=== PATIENT | male | born 1960 | race Caucasian/White ===

== ENCOUNTER 2021-07-31 05:49 | Emergency (ER) | payer BC, SELFPAY ==
[2021-07-31 05:54] VITALS: BP 131/82; PULSE 83; RESP 18; TEMP 37.1; O2SAT 96; BMI 41.2
[2021-07-31 06:38] LABS: Absolute Lymphocyte Count 3.14 X10^3/uL (0.83-4.51); Absolute Neutrophil Count 6.6 X10^3/uL (2.0-7.7); Basophil# 0.07 X10^3/uL; Basophil% 0.6 % (0-1); Eosinophil# 0.14 X10^3/uL; Eosinophils% 1.3 % (0-5); Hematocrit 36.8 % (40-54); Hemoglobin 12.1 g/dL (13.0-16.5); Lymphocyte # 3.14 X10^3/ul (0.83-4.51); Lymphocyte % 28.8 % (19-41); Mean Corp Hgb Conc 32.9 g/dL (32-36); Mean Corpuscular Hgb 29.8 pg (27.0-32.0); Mean Corpuscular Volume 90.6 fL (80-94); Mean Platelet Vol. 10.5 fl (6.2-12.0); Monocyte# 0.94 X10^3/uL; Monocyte% 8.6 % (0-10); NRBC Flagged by Analyzer 0 % (0-5); Neutrophil # 6.55 X10^3/uL (2.7-7.7); Neutrophil % 60.2 % (47-70); Platelet Count 297 K/mm3 (150-450); RBC Distribution Width CV 14.2 % (11.6-14.6); RBC Distribution Width SD 47.8 fl (35.1-43.9); Red Blood Count 4.06 M/mm3 (4.6-6.2); White Blood Count 10.9 K/mm3 (4.4-11.0)
[2021-07-31 06:50] VITALS: BP 119/76; BP 121/73; BP 125/76; PULSE 105; PULSE 82; PULSE 87
[2021-07-31 06:50] LABS: Prothrombin Time (Protime)PT. 12.8 SECONDS (11.7-14.9)
[2021-07-31 06:51] LABS: Partial Thromboplast Time 24.6 Seconds (24.1-36.2)
[2021-07-31 06:55] LABS: AST(SGOT) 15 U/L (15-37); Alanine Aminotransfer ALT/SGPT 21 U/L (16-61); Albumin, Serum 2.9 g/dL (3.2-5.0); Alkaline Phosphatase 77 U/L (45-117); Anion Gap 9 (5-15); BUN 25 mg/dL (7-18); BUN/Creat Ratio 30.3 RATIO (10-20); Bilirubin, Direct 0.05 mg/dL (0.00-0.30); Calcium,Total 8.1 mg/dL (8.5-10.1); Chloride 108 mmol/L (98-107); Creatinine, Serum 0.82 mg/dL (0.70-1.30); EST Glomerular Filtration Rate 101 mL/min (>60); Est Glom Filt Rate - Afr Amer 122 mL/min (>60); Globulin 3.9 g/dL (2.2-4.2); Glucose 270 mg/dL (74-106); Lipase 138 U/L (73-393); Potassium 4.1 mmol/L (3.5-5.1); Protein, Total 6.8 g/dL (6.4-8.2); Sodium Level 138 mmol/L (136-145)
[2021-07-31 07:05] LABS: Lactic Acid 1.7 mmol/L (0.4-1.9)
[2021-07-31] MEDS: 0.9% Normal Saline 1,000 ML 999 ML IV (07:10)
--- NOTE | 2021-07-31 07:33 | EX.ED.DYSGE1 ---
HPI History of Present Illness Chief Complaint: GI Bleed Narrative Narrative: Patient is a 61-year-old male with past medical history of type 2 diabetes on oral hypoglycemic medication as well as hypertension. He states that he had a colonoscopy 5 years ago which was reportedly normal. He states yesterday evening around 7 or 8 PM he felt like his stomach was bloated and he use the restroom and it was bloody diarrhea. He states he does not take any blood thinners and he denies any recent travel outside the country or antibiotic use or history of intestinal disorder such as ulcer colitis or Crohn's disease. Patient states as the night went on he had 3-4 more episodes of bloody diarrhea and felt kind of lightheaded when standing up this morning. Secondary to this he was brought in for evaluation [facility] Medical History CPAP (continuous positive airway pressure) dependence Diabetes Non-smoker Sleep apnea Home Medications lisinopril 10 mg PO DAILY #30 tablet 09/20/15 [Rx Last Taken Unknown] metformin 500 mg PO BIDCM #60 tab 09/20/15 [Rx Last Taken Unknown] aspirin [Baby Aspirin] 81 mg PO DAILY 07/31/21 [History Last Taken Unknown] dicyclomine 20 mg PO 4X/DAY PRN PRN #28 tab 07/31/21 [Rx Last Taken Unknown] Allergy/AdvReac Type Severity Reaction Status Date / Time No Known Allergies Allergy Verified 09/19/15 15:39 Social History Smoking Status: Never smoker [facility] ED Constitutional Constitutional ED: Denies chills or fever(s) ENT ENT ED: Denies sore throat Cardiovascular Cardiovascular: Reports racing heartbeat; Denies chest pain or palpitations Respiratory/Chest Respiratory/Chest: Denies cough or dyspnea Gastrointestinal Gastrointestinal: Reports melena; Denies abdominal pain, diarrhea, nausea or vomiting Genitourinary Genitourinary ED: Denies dysuria or hematuria Musculoskeletal Musculoskeletal: Denies back pain or myalgias Integumentary Denies rash Neurologic Neurologic: Denies headache(s) Hematologic/Lymphatic Hematologic/Lymphatic: Denies easy bleeding or easy bruising EXAM Physical Exam Const Vital Signs: 07/31/21 05:54 07/31/21 06:50 Temperature 98.8 F Temperature Source Temporal Pulse Rate 83 Pulse Rate [Lying] 82 Pulse Rate [Sitting (for 1 minute prior to obtaining)] 87 Pulse Rate [Standing (for 1 minute prior to obtaining)] 105 H Respiratory Rate 18 Blood Pressure 131/82 H Blood Pressure [Lying] 121/73 H Blood Pressure [Sitting (for 1 minute prior to obtaining)] 119/76 Blood Pressure [Standing (for 1 minute prior to obtaining)] 125/76 H Blood Pressure Mean 98 Blood Pressure Mean [Lying] 89 Blood Pressure Mean [Sitting (for 1 minute prior to obtaining)] 90 Blood Pressure Mean [Standing (for 1 minute prior to obtaining)] 92 Pulse Ox 96 Oxygen Delivery Method Room Air Positive well nourished, well developed and obese General Appearance ED: well developed Nutritional Appearance: obese HEENT Reports dry mucous membranes Mouth ED: Yes dry mucous membranes Mouth: dry mucous membranes Eyes PERRL and EOMs intact bilaterally General Eye ED: Negative for pale conjunctiva Neck supple Resp normal respiratory effort and clear to auscultation bilaterally Cardio regular rate and regular rhythm Rate: other Other Details: Radial pulses are +2-4 bilaterally are equal and symmetric GI non-tender, non-distended and no masses GI Narrative: Abdomen is obese soft nontender and nondistended with hyperactive bowel sounds. No voluntary guarding or rigidity no pulsatile mass Palpation: soft Narrative: Rectal exam shows nonbleeding nonthrombosed external hemorrhoids without anal fissure. Rectal tone is normal and stool is bright red/maroon in color and Hemoccult positive Back/Spine no CVA tenderness Extremity normal to inspection Neuro oriented x3 and CN's II-XII intact bilaterally Sensorium / Orientation: alert Motor Exam: strength 5/5 throughout Psych mental status grossly normal Skin no rashes or lesions noted Skin Narrative: Skin turgor slightly increased but capillary refill is less than 3-second MDM MDM MDM Narrative Medical decision making narrative: Patient presented to the ER normal tensive as well as with a normal heart rate. He had a soft nonsurgical abdomen. As he reported bloody diarrhea I did elect to perform basic laboratory studies. 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 We discussed a CT scan of his abdomen but the patient is afebrile he does not have any pain and therefore do not feel is necessary at this time. The blood work revealed a normal white blood cell count without left shift as well as no lactic acidosis. His hemoglobin is just slightly down at 12.1 which is well above the transfusion value of 7. Orthostatic vital signs were obtained and were technically negative but his heart rate did jump by about 18 bpm and secondary to this I did elect to give him 1 L of fluid. Following this patient reported feeling better and he was ambulated in the ER and is able to do well with a steady gait and no lightheaded/dizzy symptoms. Therefore at this time as patient is not requiring a blood transfusion he he does not have intractable abdominal pain and does not take blood thinners and is hemodynamically stable I do not feel there is need for an emergent colonoscopy. Patient will be given Bentyl to help with abdominal bloating and spasm and will follow up with GI on an outpatient basis. He was given instructions about what to watch for and when to return and states he is agreeable with this plan Lab Data Attestation: I reviewed the patient's lab results. Labs: Laboratory Results - last 24 hr 07/31/21 07/31/21 07/31/21 05:59 05:59 05:59 WBC 10.9 RBC 4.06 L Hgb 12.1 L Hct 36.8 L MCV 90.6 MCH 29.8 MCHC 32.9 RDW Std Deviation 47.8 H RDW Coeff of [place] 14.2 Plt Count 297 MPV 10.5 Immature Gran % (Auto) 0.500 Neut % (Auto) 60.2 Lymph % (Auto) 28.8 [place] % (Auto) 8.6 Eos % (Auto) 1.3 Baso % (Auto) 0.6 Absolute Neuts (auto) 6.6 Absolute Lymphs (auto) 3.14 Nucleated RBC % 0 PT 12.8 INR 1.0 APTT 24.6 Sodium 138 Potassium 4.1 Chloride 108 H Carbon Dioxide 21.0 Anion Gap 9 BUN 25 H Creatinine 0.82 Estim Creat Clear Calc 95.80 Est GFR (MDRD) Af Amer 122 Est GFR (MDRD) Non-Af 101 BUN/Creatinine Ratio 30.3 H Glucose 270 H Lactic Acid Calcium 8.1 L Total Bilirubin 0.20 Direct Bilirubin 0.05 AST 15 ALT 21 Alkaline Phosphatase 77 Total Protein 6.8 Albumin 2.9 L Globulin 3.9 Lipase 138 07/31/21 06:30 WBC RBC Hgb Hct MCV MCH MCHC RDW Std Deviation RDW Coeff of [place] Plt Count MPV Immature Gran % (Auto) Neut % (Auto) Lymph % (Auto) [place] % (Auto) Eos % (Auto) Baso % (Auto) Absolute Neuts (auto) Absolute Lymphs (auto) Nucleated RBC % PT INR APTT Sodium Potassium Chloride Carbon Dioxide Anion Gap BUN Creatinine Estim Creat Clear Calc Est GFR (MDRD) Af Amer Est GFR (MDRD) Non-Af BUN/Creatinine Ratio Glucose Lactic Acid 1.7 Calcium Total Bilirubin Direct Bilirubin AST ALT Alkaline Phosphatase Total Protein Albumin Globulin Lipase Discharge Plan Triage Chief Complaint: GI Bleed ED Provider: Sumit Resendiz Dx/Rx/DC Orders Clinical Impression: Hematochezia, Type 2 diabetes mellitus Instructions: ED Lower GI Bleeding (Stable) Prescriptions: New dicyclomine 20 mg tablet 20 mg PO 4X/DAY PRN PRN (Reason: Abdominal bloating/spasm) Qty: 28 RF: 0 No Action lisinopril 10 MG tablet 10 mg PO DAILY Qty: 30 RF: 0 metformin 500 MG tablet 500 mg PO BIDCM Qty: 60 RF: 0 aspirin [Baby Aspirin] 81 mg Tablet,Chewable 81 mg PO DAILY RF: 0 Primary Care Provider: Timo Reeves Referrals: Timo Reeves MD [Primary Care Provider] - Kody Bales DO [STAFF PHYSICIAN] - 3-5 Days if not improving Activity Restrictions/Additional Instructions: If you develop a severe increase in bleeding return of lightheaded/dizzy symptoms or development of abdominal pain and/or fever please return to the ER for repeat evaluation Disposition Disposition: Home, Self Care
[2021-07-31 08:13] VITALS: BP 117/69; PULSE 72; RESP 16; O2SAT 98
== END 2021-07-31 08:14 | disposition home or self-care (01) ==
PROVIDERS: Emergency Provider Emergency Medicine; PCP Family Medicine; Visit Provider Emergency Medicine
DX: K92.1 Melena (principal); E11.9 Type 2 diabetes mellitus without complications; Z79.84 Long term (current) use of oral hypoglycemic drugs; R19.7 Diarrhea, unspecified; R14.0 Abdominal distension (gaseous); I10 Essential (primary) hypertension; G47.30 Sleep apnea, unspecified; Z79.82 Long term (current) use of aspirin; Z79.899 Other long term (current) drug therapy
CPT/HCPCS: 80048; 80076; 82274; 83605; 83690; 85025; 85610; 85730; 96360; 99284; A4216

== ENCOUNTER → 2022-01-26 | Outpatient (CLI) | payer BC, SELFPAY ==
[2022-01-26 12:44] LABS: Absolute Lymphocyte Count 2.38 X10^3/uL (0.83-4.51); Absolute Neutrophil Count 4.3 X10^3/uL (2.0-7.7); Basophil# 0.07 X10^3/uL; Basophil% 0.9 % (0-1); Eosinophil# 0.13 X10^3/uL; Eosinophils% 1.7 % (0-5); Hematocrit 37.9 % (40-54); Hemoglobin 12.2 g/dL (13.0-16.5); Lymphocyte # 2.38 X10^3/ul (0.83-4.51); Lymphocyte % 30.7 % (19-41); Mean Corp Hgb Conc 32.2 g/dL (32-36); Mean Platelet Vol. 10.6 fl (6.2-12.0); Monocyte# 0.83 X10^3/uL; Monocyte% 10.7 % (0-10); NRBC Flagged by Analyzer 0 % (0-5); Neutrophil # 4.31 X10^3/uL (2.7-7.7); Neutrophil % 55.7 % (47-70); Platelet Count 322 K/mm3 (150-450); RBC Distribution Width CV 15.9 % (11.6-14.6); RBC Distribution Width SD 52.5 fl (35.1-43.9); Red Blood Count 4.21 M/mm3 (4.6-6.2); White Blood Count 7.7 K/mm3 (4.4-11.0)
[2022-01-26 12:58] LABS: ALB/GLOB Ratio 0.9 RATIO (0.9-2.4); AST(SGOT) 12 U/L (15-37); Alanine Aminotransfer ALT/SGPT 20 U/L (16-61); Albumin, Serum 3.4 g/dL (3.2-5.0); Alkaline Phosphatase 85 U/L (45-117); Anion Gap 7 (5-15); BUN 20 mg/dL (7-18); BUN/Creat Ratio 29.2 RATIO (10-20); Calcium,Total 9.4 mg/dL (8.5-10.1); Chloride 106 mmol/L (98-107); Creatinine, Serum 0.69 mg/dL (0.70-1.30); EST Glomerular Filtration Rate 125 mL/min (>60); Est Glom Filt Rate - Afr Amer 151 mL/min (>60); Globulin 3.9 g/dL (2.2-4.2); Glucose 108 mg/dL (74-106); Protein, Total 7.3 g/dL (6.4-8.2); Rheumatoid Factor < 10.0 IU/mL (<15); Sodium Level 138 mmol/L (136-145)
[2022-01-26 13:31] LABS: Hepatitis B Surface Antibody Reactive; Hepatitis B Surface Antigen Non-Reactive (Nonreactive); Hepatitis C Antibody Non-Reactive (Nonreactive)
[2022-02-02 14:32] LABS: CCP IgG Antibodies 1 units (0-19)
== END | disposition home or self-care (01) ==
LOC: MTLAB 09:42
PROVIDERS: PCP Family Medicine; Referring Provider Internal Medicine Rheumatology; Visit Provider Internal Medicine Rheumatology
DX: M06.4 Inflammatory polyarthropathy (principal); E11.9 Type 2 diabetes mellitus without complications; M72.0 Palmar fascial fibromatosis [Dupuytren]; M17.0 Bilateral primary osteoarthritis of knee; I10 Essential (primary) hypertension; E78.2 Mixed hyperlipidemia; G47.33 Obstructive sleep apnea (adult) (pediatric)
CPT/HCPCS: 36415; 80053; 85025; 86200; 86431; 86706; 86803; 87340

== ENCOUNTER → 2022-08-30 | Outpatient (CLI) | payer BC, SELFPAY ==
--- NOTE | 2022-08-30 13:56 | ECHOD_ITS ---
Reason For Study: CAD/ASHD Procedure This was a 2D Doppler, Color Flow transthoracic echocardiogram. Exam performed in department. Left Ventricle Normal LV size. Mild concentric left ventricular hypertrophy. Left ventricular systolic function is normal. The estimated ejection fraction is 55 %. Stage 1 diastolic dysfunction. No regional wall motion abnormalities noted. Right Ventricle Normal RV size. Normal systolic function. Atria The left atrium is mildly enlarged. The right atrium is mildly enlarged. Mitral Valve Normal mitral valve. Tricuspid Valve Normal tricuspid valve. Aortic Valve Trisinus/trileaflet aortic valve. Pulmonic Valve Normal pulmonic valve. Great Vessels Normal aortic root. The pulmonary artery is normal size. Normal inferior vena cava. Pericardium/Pleural No pericardial effusion. MMode/2D Measurements & Calculations LVIDd: 5.6 cm IVSd: 1.3 cm Ao root diam: 2.7 cm LVIDs: 3.7 cm LVPWd: 1.5 cm LA dimension: 4.7 cm RVDd: 3.2 cm FS: 33.0 % LAV(MOD-bp): 77.5 ml LVAd ap4: 41.7 cm2 LVAd ap2: 29.2 cm2 LAV(MOD-bp) Indexed: 33.5 ml/m2 LVLd ap4: 9.3 cm LVLd ap2: 8.7 cm LAV(MOD-sp2): 70.4 ml EDV(MOD-sp4): 159.6 ml EDV(MOD-sp2): 89.5 ml LAV(MOD-sp4): 79.3 ml EDV(sp4-el): 158.2 ml EDV(sp2-el): 83.0 ml LVAs ap4: 25.8 cm2 LVAs ap2: 18.5 cm2 LVLs ap4: 7.8 cm LVLs ap2: 7.5 cm ESV(MOD-sp4): 76.1 ml ESV(MOD-sp2): 44.3 ml ESV(sp4-el): 72.2 ml ESV(sp2-el): 38.8 ml EF(MOD-sp4): 52.3 % EF(MOD-sp2): 50.5 % EF(sp4-el): 54.4 % SV(MOD-sp4): 83.5 ml SV(MOD-sp2): 45.1 ml SV(sp4-el): 86.0 ml LA A4 area: 23.5 cm2 RA A4 area: 21.3 cm2 Time Measurements MV dec time: 0.24 sec Doppler Measurements & Calculations MV E max ricci: 70.9 cm/sec Lat Peak E' Ricci: 10.0 cm/sec Med Peak E' Ricci: 8.8 cm/sec MV A max ricci: 75.4 cm/sec E/E' lat: 7.1 E/E' med: 8.1 MV E/A: 0.94 MV dec slope: 303.4 cm/sec2 Ao V2 max: 180.4 cm/sec LV V1 max: 104.9 cm/sec Ao max P.0 mmHg LV V1 max P.4 mmHg Ao V2 mean: 125.6 cm/sec LV V1 mean P.6 mmHg Ao mean P.9 mmHg LV V1 mean: 77.3 cm/sec Ao V2 VTI: 37.1 cm LV V1 VTI: 24.2 cm AV (velocity ratio): 0.65 ECHO/Echo Complete Interpretation Summary Normal LV size. Mild concentric left ventricular hypertrophy. Left ventricular systolic function is normal. The estimated ejection fraction is 55 %. Stage 1 diastolic dysfunction. Ordering Physician: Charlie Santillan Referring Physician: Timo Reeves Performed By: Christina Ferguson RVT, RDCS and Student
== END | disposition home or self-care (01) ==
LOC: CVS 13:55
PROVIDERS: PCP Family Medicine; Referring Provider Internal Medicine Cardiovascular Disease; Visit Provider Internal Medicine Cardiovascular Disease
DX: I25.10 Atherosclerotic heart disease of native coronary artery without angina pectoris (principal); R93.1 Abnormal findings on diagnostic imaging of heart and coronary circulation; E78.5 Hyperlipidemia, unspecified; I10 Essential (primary) hypertension
CPT/HCPCS: 93306

== ENCOUNTER → 2024-10-15 | Outpatient (CLI) | payer BC, SELFPAY ==
--- NOTE | 2024-10-15 | LES_PTH ---
PATIENT: JULEE SOLIS LOC: [facility] U#:[id number] AGE/SX: 64/M ROOM: RE10/15/[address]: Dr. Pancho Michaels MD : 1960 BED: DIS: 10/15/2024 SPEC #: [id number] RECD: 10/15/24 10:22 STATUS: MERY RERosalino #: [id number] SWATI: 10/15/24 00:[address]: Pancho Michaels DEPT: SURGICAL PATHOLOGY RECD BY: Ant Deutsch ENTERED: 10/15/24 13:10 SP TYPE: Lesion OTHR DR: Dr. Timo Reeves MD Tissues: A - Skin of eyelid, NOS Procedures: Surgery Specimen Level III HEADER OPERATION: Left lower lid PRE-OP DIAGNOSIS: Left lower lid lesion TISSUE SUBMITTED: A- Left lower lid lesion MICROSCOPIC DIAGNOSIS A. Eyelid, left lower, "lesion", excision: - Acrochordon (skin tag). MICROSCOPIC DESCRIPTION Slides are reviewed. GROSS DESCRIPTION A. Received in formalin labeled with the patient's name and date of . Designated as " left lower eyelid" is a 0.4 x 0.2 x 0.1 cm mckenzie skin shave, devoid of orientation. The resection margin is inked black. There is a 0.3 x 0.2 cm mckenzie, slightly raised bosselated lesion abutting the peripheral edge. The specimen is bisected. Entirely submitted in 1 cassette. SD 10/15/2024 CPT:32065
== END | disposition home or self-care (01) ==
LOC: LABSPEC 12:17
PROVIDERS: PCP Family Medicine; Referring Provider Ophthalmology; Visit Provider Ophthalmology
DX: L91.8 Other hypertrophic disorders of the skin (principal); H02.9 Unspecified disorder of eyelid
CPT/HCPCS: 88304; 88305